=== PATIENT | female | born 1970 | race Caucasian/White ===

== ENCOUNTER → 2017-07-01 07:14 | Outpatient (CLI) | payer BC, SELFPAY ==
[2017-07-01 10:16] LABS: Absolute Lymphocyte Count 0.33 X10^3/ul (0.83-4.51); Absolute Neutrophil Count 2.4 X10^3/uL (2.0-7.7); Basophil# 0.02 X10^3/uL; Basophil% 0.6 % (0-1); Differential Indicated SCAN CRITERIA MET; Eosinophil# 0.09 X10^3/uL; Eosinophils% 2.6 % (0-5); Hematocrit 37.5 % (37-47); Hemoglobin 11.7 g/dl (12.0-15.0); Lymphocyte # 0.33 X10^3/ul (4.0); Lymphocyte % 9.7 % (19-41); Mean Corp Hgb Conc 31.2 g/gl (32-36); Mean Corpuscular Hgb 28.8 pg (27.0-32.0); Mean Corpuscular Volume 92.4 fL (81-99); Monocyte# 0.58 X10^3/uL; Monocyte% 17.1 % (0-10); Neutrophil # 2.37 X10^3/uL (2.7-7.7); Neutrophil % 69.7 % (47-70); POSITIVE COUNT NO; POSITIVE DIFFERENTIAL YES; POSITIVE MORPHOLOGY NO; Platelet Count 206 K/mm3 (150-450); RBC Distribution Width CV 13.8 % (11.6-14.6); RBC Distribution Width SD 46.4 fl (35.1-43.9); Red Blood Count 4.06 M/mm3 (4.2-5.4); White Blood Count 3.4 K/mm3 (4.4-11.0)
== END ==
PROVIDERS: Family Provider Internal Medicine; PCP Internal Medicine; Visit Provider Psychiatry & Neurology Neurology
DX: D72.819 Decreased white blood cell count, unspecified (principal); G35 Multiple sclerosis
CPT/HCPCS: 36415; 85025

== ENCOUNTER → 2017-09-02 15:37 | Outpatient (CLI) | payer BC, SELFPAY ==
--- NOTE | 2017-09-02 15:41 | BI_ITS ---
MAMMOGRAPHY - BILATERAL SCREENING REASON FOR EXAM: Female, 47 years old. Routine annual screening examination. PERTINENT HISTORY: Non-contributory. Prior left stereotactic breast biopsy. TECHNIQUE: Digital bilateral breast taty (3D mammographic acquisition) in the CC and MLO projections. 2-D mediolateral oblique (MLO) and craniocaudad (CC) views of both breasts were obtained. CAD: Full Field Digital Mammography with Computer Added Detection was performed. COMPARISON: Comparison is made with prior examination dated August 27, 2011. FINDINGS: Breast Composition: There are scattered areas of fibroglandular density. There are no dominant masses or suspicious calcifications. Once again, a tissue clip marker is seen in the upper lateral aspect of the left breast. No other significant abnormalities are identified. There has been no significant change since the prior study. BI/SCREENING MAMM (CAD), BILAT IMPRESSION: Stable bilateral screening mammogram. Yearly follow-up mammogram recommended. (A) ASSESSMENT CATEGORY: BIRADS Category 2: Benign. A letter regarding these results will be sent to the patient by the facility within 30 days. Approximately 10% of breast cancers are not detected by mammography. A normal mammogram should not delay biopsy of a clinically suspicious abnormality. [id number] Electronically Signed: Kris Husain MD at 8:33 EDT Tel [phone], Service support ,
== END ==
PROVIDERS: Family Provider Internal Medicine; PCP Internal Medicine; Visit Provider Internal Medicine
DX: Z12.31 Encounter for screening mammogram for malignant neoplasm of breast (principal)
CPT/HCPCS: 77063; 77067

== ENCOUNTER → 2018-06-30 | Outpatient (CLI) | payer BC, SELFPAY ==
[2018-06-30 10:23] LABS: Absolute Lymphocyte Count 0.27 X10^3/ul (0.83-4.51); Basophil# 0.01 X10^3/uL; Basophil% 0.2 % (0-1); Differential Indicated SCAN CRITERIA MET; Eosinophils% 2.5 % (0-5); Hematocrit 38.6 % (37-47); Hemoglobin 12.2 g/dl (12.0-15.0); Lymphocyte # 0.27 X10^3/ul (4.0); Lymphocyte % 6.6 % (19-41); Mean Corp Hgb Conc 31.6 g/gl (32-36); Mean Corpuscular Hgb 28.9 pg (27.0-32.0); Mean Corpuscular Volume 91.5 fL (81-99); Monocyte# 0.67 X10^3/uL; Monocyte% 16.4 % (0-10); Neutrophil # 3.01 X10^3/uL (2.7-7.7); Neutrophil % 73.8 % (47-70); POSITIVE COUNT NO; POSITIVE DIFFERENTIAL YES; POSITIVE MORPHOLOGY NO; Platelet Count 213 K/mm3 (150-450); RBC Distribution Width CV 14.3 % (11.6-14.6); RBC Distribution Width SD 47.4 fl (35.1-43.9); Red Blood Count 4.22 M/mm3 (4.2-5.4); White Blood Count 4.1 K/mm3 (4.4-11.0)
[2018-06-30 13:05] LABS: Pathologist Review Reviewed
== END | disposition home or self-care (01) ==
LOC: MTLAB 07:20
PROVIDERS: Family Provider Internal Medicine; PCP Internal Medicine; Referring Provider Psychiatry & Neurology Neurology; Visit Provider Psychiatry & Neurology Neurology
DX: G35 Multiple sclerosis (principal)
CPT/HCPCS: 36415; 85025

== ENCOUNTER → 2019-07-17 | Outpatient (CLI) | payer OTHER, SELFPAY ==
[2019-07-17 10:03] LABS: Absolute Lymphocyte Count 0.32 X10^3/uL (0.83-4.51); Absolute Neutrophil Count 2.7 X10^3/uL (2.0-7.7); Basophil# 0.03 X10^3/uL; Basophil% 0.8 % (0-1); Eosinophils% 2.7 % (0-5); Hematocrit 40.3 % (37-47); Hemoglobin 12.5 g/dL (12.0-15.0); Lymphocyte # 0.32 X10^3/ul (4.0); Lymphocyte % 8.6 % (19-41); Mean Corpuscular Hgb 28.8 pg (27.0-32.0); Mean Corpuscular Volume 92.9 fL (81-99); Mean Platelet Vol. 10.2 fl (6.2-12.0); Monocyte# 0.54 X10^3/uL; Monocyte% 14.6 % (0-10); NRBC Flagged by Analyzer 0 % (0-5); Neutrophil % 72.8 % (47-70); POSITIVE DIFFERENTIAL YES; Platelet Count 234 K/mm3 (150-450); RBC Distribution Width CV 13.8 % (11.6-14.6); Red Blood Count 4.34 M/mm3 (4.2-5.4); White Blood Count 3.7 K/mm3 (4.4-11.0)
[2019-07-17 10:04] LABS: Differential Indicated SCAN CRITERIA MET
[2019-07-18 10:00] LABS: Pathologist Review Reviewed
== END | disposition home or self-care (01) ==
LOC: MTLAB 07:53
PROVIDERS: PCP Internal Medicine; Referring Provider Psychiatry & Neurology Neurology; Visit Provider Psychiatry & Neurology Neurology
DX: D72.819 Decreased white blood cell count, unspecified (principal); G35 Multiple sclerosis
CPT/HCPCS: 36415; 85025

== ENCOUNTER → 2020-06-24 07:13 | Outpatient (CLI) | payer OTHER, SELFPAY ==
[2020-06-24 10:06] LABS: Absolute Lymphocyte Count 0.29 X10^3/uL (0.83-4.51); Absolute Neutrophil Count 2.5 X10^3/uL (2.0-7.7); Basophil# 0.02 X10^3/uL; Basophil% 0.6 % (0-1); Eosinophil# 0.06 X10^3/uL; Eosinophils% 1.8 % (0-5); Hematocrit 41.8 % (37-47); Hemoglobin 12.9 g/dL (12.0-15.0); Lymphocyte # 0.29 X10^3/ul (4.0); Lymphocyte % 8.5 % (19-41); Mean Corp Hgb Conc 30.9 g/dL (32-36); Mean Corpuscular Hgb 28.4 pg (27.0-32.0); Mean Corpuscular Volume 91.9 fL (81-99); Mean Platelet Vol. 9.8 fl (6.2-12.0); Monocyte# 0.52 X10^3/uL; Monocyte% 15.3 % (0-10); NRBC Flagged by Analyzer 0 % (0-5); Neutrophil # 2.49 X10^3/uL (2.7-7.7); Neutrophil % 73.2 % (47-70); POSITIVE DIFFERENTIAL YES; Platelet Count 254 K/mm3 (150-450); RBC Distribution Width CV 13.3 % (11.6-14.6); RBC Distribution Width SD 45.2 fl (35.1-43.9); Red Blood Count 4.55 M/mm3 (4.2-5.4); White Blood Count 3.4 K/mm3 (4.4-11.0)
[2020-06-24 10:07] LABS: Differential Indicated SCAN CRITERIA MET
[2020-06-24 10:37] LABS: AST(SGOT) 18 U/L (15-37); Alanine Aminotransfer ALT/SGPT 28 U/L (13-56); Albumin, Serum 3.5 g/dL (3.2-5.0); Alkaline Phosphatase 168 U/L (45-117); Globulin 3.9 g/dL (2.2-4.2); Protein, Total 7.4 g/dL (6.4-8.2)
[2020-06-25 12:27] LABS: Pathologist Review Reviewed
== END ==
PROVIDERS: PCP Internal Medicine; Referring Provider Psychiatry & Neurology Neurology; Visit Provider Psychiatry & Neurology Neurology
DX: G35 Multiple sclerosis (principal)
CPT/HCPCS: 36415; 80076; 85025

== ENCOUNTER 2021-05-22 07:15 | Outpatient (CLI) | payer OTHER, SELFPAY ==
[2021-05-22 09:58] LABS: Absolute Neutrophil Count 2.3 X10^3/uL (2.0-7.7); Basophil# 0.03 X10^3/uL; Basophil% 0.9 % (0-1); Eosinophil# 0.05 X10^3/uL; Eosinophils% 1.5 % (0-5); Hematocrit 40.2 % (37-47); Hemoglobin 13.1 g/dL (12.0-15.0); Lymphocyte % 9.3 % (19-41); Mean Corp Hgb Conc 32.6 g/dL (32-36); Mean Corpuscular Hgb 29.5 pg (27.0-32.0); Mean Corpuscular Volume 90.5 fL (81-99); Mean Platelet Vol. 9.9 fl (6.2-12.0); Monocyte# 0.51 X10^3/uL; Monocyte% 15.8 % (0-10); NRBC Flagged by Analyzer 0 % (0-5); Neutrophil # 2.32 X10^3/uL (2.7-7.7); Neutrophil % 71.9 % (47-70); POSITIVE DIFFERENTIAL YES; Platelet Count 242 K/mm3 (150-450); RBC Distribution Width CV 13.8 % (11.6-14.6); RBC Distribution Width SD 45.9 fl (35.1-43.9); Red Blood Count 4.44 M/mm3 (4.2-5.4); White Blood Count 3.2 K/mm3 (4.4-11.0)
[2021-05-22 10:02] LABS: Differential Indicated SCAN CRITERIA MET
[2021-05-22 10:15] LABS: AST(SGOT) 24 U/L (15-37); Alanine Aminotransfer ALT/SGPT 36 U/L (13-56); Albumin, Serum 3.3 g/dL (3.2-5.0); Alkaline Phosphatase 186 U/L (45-117); Bilirubin, Direct 0.08 mg/dL (0.00-0.30); Globulin 4.1 g/dL (2.2-4.2); Protein, Total 7.4 g/dL (6.4-8.2)
[2021-05-26 10:15] LABS: Pathologist Review Reviewed
== END 2021-05-22 23:59 | disposition home or self-care (01) ==
LOC: MTLAB 07:16
PROVIDERS: PCP Internal Medicine; Referring Provider Psychiatry & Neurology Neurology; Visit Provider Psychiatry & Neurology Neurology
DX: G35 Multiple sclerosis (principal)
CPT/HCPCS: 36415; 80076; 85025

== ENCOUNTER → 2022-04-26 | Outpatient (CLI) | payer OTHER, SELFPAY ==
[2022-04-26 10:18] LABS: Absolute Lymphocyte Count 0.35 X10^3/uL (0.83-4.51); Absolute Neutrophil Count 2.5 X10^3/uL (2.0-7.7); Basophil# 0.03 X10^3/uL; Basophil% 0.8 % (0-1); Eosinophil# 0.05 X10^3/uL; Eosinophils% 1.4 % (0-5); Hematocrit 42.3 % (37-47); Hemoglobin 13.4 g/dL (12.0-15.0); Lymphocyte # 0.35 X10^3/ul (0.83-4.51); Lymphocyte % 9.9 % (19-41); Mean Corp Hgb Conc 31.7 g/dL (32-36); Mean Corpuscular Hgb 28.7 pg (27.0-32.0); Mean Corpuscular Volume 90.6 fL (81-99); Mean Platelet Vol. 9.4 fl (6.2-12.0); Monocyte% 16.9 % (0-10); NRBC Flagged by Analyzer 0 % (0-5); Neutrophil # 2.51 X10^3/uL (2.7-7.7); Neutrophil % 70.7 % (47-70); POSITIVE DIFFERENTIAL YES; Platelet Count 198 K/mm3 (150-450); RBC Distribution Width CV 13.7 % (11.6-14.6); RBC Distribution Width SD 45.6 fl (35.1-43.9); Red Blood Count 4.67 M/mm3 (4.2-5.4); White Blood Count 3.6 K/mm3 (4.4-11.0)
[2022-04-26 10:21] LABS: Differential Indicated SCAN CRITERIA MET
[2022-04-26 10:38] LABS: AST(SGOT) 26 U/L (15-37); Alanine Aminotransfer ALT/SGPT 46 U/L (13-56); Albumin, Serum 3.5 g/dL (3.2-5.0); Alkaline Phosphatase 159 U/L (45-117); Bilirubin, Direct 0.11 mg/dL (0.00-0.30); Globulin 4.2 g/dL (2.2-4.2); Protein, Total 7.7 g/dL (6.4-8.2)
[2022-04-26 10:43] LABS: Differential Comment SCANNED
[2022-04-27 12:07] LABS: Pathologist Review Reviewed
== END | disposition home or self-care (01) ==
LOC: MTLAB 07:16
PROVIDERS: PCP Internal Medicine; Referring Provider Psychiatry & Neurology Neurology; Visit Provider Psychiatry & Neurology Neurology
DX: G35 Multiple sclerosis (principal)
CPT/HCPCS: 36415; 80076; 85025

== ENCOUNTER 2022-07-17 08:23 | Emergency (ER) | payer OTHER, SELFPAY ==
[2022-07-17 08:24] VITALS: BP 148/66; PULSE 80; RESP 16; TEMP 35.8; O2SAT 98; BMI 27.4
--- NOTE | 2022-07-17 08:32 | RAD_ITS ---
HISTORY: Trauma. TECHNIQUE: XR Ankle Min 3 Views. COMPARISON: None. FINDINGS: BONES : Oblique fracture distal fibula without displacement. Suspect additional nondisplaced fracture of the distal tibia anteriorly on the lateral view. JOINTS: No dislocation. Joint spaces maintained. Mild joint effusion. SOFT TISSUES: Moderate soft tissue swelling. RAD/Ankle min 3 Views IMPRESSION: Nondisplaced fracture of the distal fibula. Suspect additional nondisplaced fracture of the distal tibia. Soft tissue swelling of the right ankle. Electronically Signed: Luanne Hilliard MD at 9:11 EDT ,
--- NOTE | 2022-07-17 08:33 | ED.VIS.LOWEX ---
HPI History of Present Illness Chief Complaint: Lower Extremity Injury Informant: patient and spouse/S.O. Narrative Narrative: Patient slipped getting into a jeep and hurt her right ankle. This happened about half an hour ago. She denies any other injuries. She states when she fell her knee twisted but it does not hurt at all. She initially went home. But when she and her got home she could not put weight on the ankle when she got out of the jeep. Therefore she came in here. No injury to the head or any other areas. This was a mechanical fall and not syncopal. Weightbearing and palpation makes it worse and rest makes it better PFSH PFSH Medical History no medical history Home Medications hydrocodone-acetaminophen 5-325mg 5mg-325mg 1 tab PO Q6H PRN PRN Pain 3 days #10 TABLETS 07/17/22 [Rx Last Taken Unknown] Allergy/AdvReac Type Severity Reaction Status Date / Time No Known Allergies Allergy Verified 07/17/22 08:24 Family History no significant family his Surgical History no surgical history Social History Smoking Status: Current every day smoker tobacco type: cigarettes ROS ROS ED Constitutional Constitutional ED: Denies chills or fever(s) Eyes Eyes: Denies blurry vision Gastrointestinal Gastrointestinal: Denies nausea or vomiting Musculoskeletal Musculoskeletal: Reports arthralgias; Denies back pain or neck pain Integumentary Denies Abrasions or rash Neurologic Neurologic: Denies headache(s), paresthesias or weakness Hematologic/Lymphatic Hematologic/Lymphatic: Denies easy bleeding or easy bruising EXAM Physical Exam Narrative Exam Narrative: Patient awake alert no acute distress. She is sitting comfortably in the bed. Pleasant carries on normal conversation. HEENT shows no indication of trauma. Cardiorespiratory shows easy unlabored breathing and her saturations were normal at 98% on room air. Extremities show free range of motion of both upper extremities without pain. No deformities or bruising noted. Left lower extremity is normal. The right was examined. There is no tenderness or pain with motion at her knee. However she does have some mild swelling over the lateral malleolus of the right ankle. There is no tenderness medially. There is no tenderness to the fifth metatarsal or calcaneus. Achilles tendon is intact by palpation and Esposito test. Skin shows no abrasion or laceration or open area Neurologically she has normal distal sensation. Const Vital Signs: 07/17/22 08:24 Temperature 96.5 F L Temperature Source Temporal Pulse Rate 80 Respiratory Rate 16 Blood Pressure 148/66 H Blood Pressure Mean 93 Pulse Ox 98 Oxygen Delivery Method Room Air MDM MDM MDM Narrative Medical decision making narrative: My independent interpretation of the patient's three-view ankle x-ray does show a spiral type fracture of the distal fibula really just at and above the mortise area. However the mortise looks intact. This overall looks like a Roque B fracture but without any significant dislocation. Final reading by radiology is pending. Patient will be placed in a boot orthosis because she already has swelling and I cannot really get her in a cast at this point. We will use walker. She was told to be nonweightbearing. She does need follow-up as she may need conversion to a formal cast. It is possible she could need surgery if there is any disruption of the fracture fragments. Even if its not hurting she needs to follow-up for repeat imaging. She did not want anything for pain but I will write something in case the pain increases. She can fill this if needed. Discharge Plan Triage Chief Complaint: Lower Extremity Injury ED Provider: Adan Crocker Dx/Rx/DC Orders Clinical Impression: Closed fracture of right distal fibula, Fall from slipping Instructions: ED Ankle Fracture Prescriptions: New hydrocodone-acetaminophen [hydrocodone-acetaminophen] 5-325 mg tablet 1 tab PO Q6H PRN PRN (Reason: Pain) 3 Days Qty: 10 0RF Primary Care Provider: Zara Lira Referrals: Zara Lira DO [Primary Care Provider] - Dio Hamilton DO [Med Staff - Active Staff] - 3-5 Days Activity Restrictions/Additional Instructions: I sent elevate above the level of your heart as much as possible. No weightbearing on right leg. Disposition Disposition: Home, Self Care
== END 2022-07-17 09:24 | disposition home or self-care (01) ==
PROVIDERS: Emergency Provider Emergency Medicine; PCP Internal Medicine; Visit Provider Emergency Medicine
DX: S82.441A Displaced spiral fracture of shaft of right fibula, initial encounter for closed fracture (principal); F17.210 Nicotine dependence, cigarettes, uncomplicated; W01.0XXA Fall on same level from slipping, tripping and stumbling without subsequent striking against object, initial encounter
CPT/HCPCS: 73610; 99283

== ENCOUNTER → 2023-04-29 | Outpatient (CLI) | payer OTHER, SELFPAY ==
--- OUTSIDE RECORDS SUMMARY | 2023-04-29 07:29 | XMS RPT_ITS | CCD ---
Author Name Unknown Address [address] [place] [address] Organization [facility] Care Team Providers Care Seal Delivery Vehicle Officer Name Role Phone Zara Lira Unavailable Kiara Celis Unavailable Lizbeth Gold Unavailable Earline Martinez Unavailable Unavailable Padmini Gonzales Unavailable Unavailable Gilbert Gonzales Unavailable Unavailable Unavailable Unavailable Zara Lira DO Unavailable Kiara Celis Unavailable [phone] Dr. Lizbeth Gold Unavailable [phone] Earline Martinez RN Unavailable Unavailable Padmini Gonzales Unavailable Unavailable Mariela Crawford CMA Unavailable Unavailable Unavailable Unavailable Zara Lira DO Unavailable Medications Completed/Discontinued Medications Medication Drug Class(es) Dates Sig (Normalized) Sig (Original) acetaminophen 500 mg / HYDROcodone bitartrate 5 mg oral tablet (5 sources) Opioid Agonist Start: 12-02-2010 End: 02-18-2011 take 1 tablet by mouth every six hours as needed VICODIN, 5-500MG (Oral Tablet) 1 Tablet q 6 hr prn for 0 days Quantity: 20 {Tablet} Refills: 0 Ordered: 18-Feb-2011 Earline Martinez RN Start : 02-Dec-2010 End : 18-Feb-2011 Inactive Comments: Mail order. twenty Problems Active Problems Problem Classification Problem Date Documented Da te Episodic/Chronic Abdominal pain (10 sources) Flank pain; Translations: [Flank pain] Resolved: 07-20-2017 08-16-2017 Episodic Past or Other Problems Problem Classification Problem Date Documented Date Episodic/Chronic Unclassified (6 sources) Patient encounter status; Translations: [Encounter for screening mammogram for breast cancer (Renamed from Encounter for screening mammogram for malignant neoplasm of breast)] 08-16-2017 Unclassified (1 source) Screening status; Translations: [SCREENING FOR HYPERLIPIDEMIA] 08-16-2017 Unclassified (4 sources) Sinusitis,acute (461.9) Unclassified (4 sources) Rash (782.1) Unclassified (4 sources) Contact dermatitis and other eczema due to plants (except food) (692.6) Unclassified (12 sources) Well Woman Exam (V72.31) (Pap,Mammo,Routine Female) Unclassified (4 sources) HEMATOMA, NOS Unclassified (10 sources) Unspecified Diagnosis Resolved: 02-22-2012 02-22-2012 Unclassified (4 sources) Well woman exam with routine gynecological exam Unclassified (4 sources) Screening for HPV (human papillomavirus) (Renamed from Encounter for screening for human papillomavirus (HPV)) Unclassified (8 sources) Other Inflammatory Diseases of Cervix, Vagina or Vulva (616.8) Unclassified (8 sources) Abnormal Pap Smear (795.00) Unclassified (4 sources) Plantar wart of right foot (078.12) Unclassified (4 sources) BMI 25.0-25.9,adult Unclassified (4 sources) Abnormal mammogram (793.80) Unclassified (4 sources) Flu-like symptoms Unclassified (4 sources) Nausea and/or vomiting Unclassified (4 sources) Shingles Viral infection (1 source) Plantar wart of right foot; Translations: [Plantar wart of right foot] Resolved: 08-30-2012 08-16-2017 Results Test Name Value Interpretation Reference Range Facil ity Vital Signs Date Time Vital Sign Value Performing Clinician Facility 07-29-2021 11:14-0400 Body height 167.64 cm [facility]; [facility] Work Phone: 07-29-2021 11:14-0400 Body mass index (BMI) [Ratio] 31.84 kg/m2 [facility]; [facility] Work Phone: 07-29-2021 11:14-0400 Body surface area Derived from formula 1.99 m2 Mariela [facility] METER ATTENDANT [facility]; [facility] Work Phone: 07-29-2021 11:14-0400 Body temperature 97.3 [degF] [facility]; [facility] Work Phone: Encounters Encounter Date Encounter Type Care Provider Facility Start: 07-29-2021 End: 07-29-2021 Office outpatient visit 25 minutes Zara Lira DO Work Phone: [facility] Start: 07-29-2021 Review Zara fuentes DO Work Phone: [facility] Start: 08-26-2017 End: 08-26-2017 Office outpatient visit 5 minutes Z[facility] Carbajal [facility] Start: 08-25-2017 End: 08-25-2017 Office outpatient visit 5 minutes Zara Lira [facility] Start: 08-22-2017 End: 08-22-2017 Office outpatient visit 5 minutes [facility] Carb[facility] Start: 08-19-2017 End: 08-19-2017 Office outpatient visit 5 minutes Zara Lira [facility] Start: 08-18-2017 End: 08-18-2017 Office outpatient visit 5 minutes Zara Lira [facility] Start: 08-17-2017 End: 08-18-2017 Office outpatient visit 5 minutes Zara Carbajal [facility] Start: 08-16-2017 End: 08-16-2017 Patient encounter procedure Earline Martinez RN [facility]; [facility] Work Phone: Start: 08-16-2017 End: 08-16-2017 Periodic preventive med est patient 40-64yrs Zara Carbajal [facility] Start: 07-20-2017 End: 07-20-2017 Office outpatient visit 25 minutes Zara Lira [facility] Start: 04-06-2016 End: 04-06-2016 Office outpatient visit 15 minutes Zara Carbajal [facility] Start: 12-05-2013 End: 12-05-2013 Office outpatient visit 25 minutes Zara Carbajal [facility] Start: 04-05-2013 End: 04-05-2013 Patient encounter procedure Zara Carbajal [facility] Start: 09-20-2012 End: 09-20-2012 Patient encounter procedure Zara Lira [facility] Start: 08-30-2012 End: 08-30-2012 Patient encounter procedure Zara Lira [facility] Start: 02-22-2012 End: 02-22-2012 Patient encounter procedure Zara Lira [facility] Start: 02-18-2012 End: 02-18-2012 Patient encounter procedure Zara Lira [facility] Start: 08-13-2011 End: 08-13-2011 Office outpatient visit 15 minutes Zarajamey Lira [facility] Start: 07-29-2011 End: 07-29-2011 Patient encounter procedure Zara Lira [facility] Start: 02-18-2011 End: 02-18-2011 Patient encounter procedure Zara Lira [facility] Start: 12-02-2010 End: 12-02-2010 Patient encounter procedure Zara Lira [facility] Start: 05-12-2009 End: 05-12-2009 Office outpatient visit 15 minutes Zara Pankaj [facility] Start: 12-28-2007 End: 12-28-2007 Patient encounter procedure Zara Lira [facility] Start: 12-14-2007 End: 12-14-2007 Patient encounter procedure Zara Lira [facility] Start: 09-11-2007 End: 09-11-2007 Patient encounter procedure Zara Lira [facility] Start: 08-07-2007 End: 08-07-2007 Office outpatient visit 25 minutes Zara Pankaj [facility] Start: 01-30-2007 End: 01-30-2007 Office outpatient visit 25 minutes Zara Pankaj [facility] Start: 11-28-2006 End: 11-28-2006 Patient encounter procedure Zara Fabianon [facility] Start: 11-02-2006 End: 11-02-2006 Patient encounter procedure Zara Lira [facility] Start: 10-26-2006 End: 10-26-2006 Patient encounter procedure Zarachristopher Fabianon [facility] Start: 10-19-2006 End: 10-19-2006 Patient encounter procedure Zara Lira [facility] Start: 08-12-2006 End: 08-12-2006 Patient encounter procedure Zara Fabianon [facility] Start: 06-27-2006 End: 06-27-2006 Office outpatient visit 10 minutes Zara Lira [facility] Start: 05-17-2006 End: 05-17-2006 Office outpatient new 45 minutes Zara Lira [facility] Patient encounter procedure Mariela Crawford METER ATTENDANT [facility]; [facility] Work Phone: Procedures Date Procedure Procedure Detail Performing Clinician Start: 07-17-2022 End: 07-17-2022 Emergency Department Summary Procedure Note: See Note; NOTES: [facility] Medical Records Department [address] [place] [address] Emergency Department Summary 07/17/22 MR#: [id number] Acct: [id number] Name: SHERRILL HANSEN Rep #: [id number] : 1970 51 From: Adan Crocker MD PCP: Dr. Zara Lira, DO Status:REG ER Location: ED HPI History of Present Illness Chief Complaint: Lower Extremity Injury Informant: patient and spouse/S.O. Narrative Narrative: Patient slipped getting into a jeep and hurt her right ankle. This happened about half an hour ago. She denies any other injuries. She states when she fell her knee twisted but it does not hurt at all. She initially went home. But when she and her got home she could not put weight on the ankle when she got out of the jeep. Therefore she came in here. No injury to the head or any other areas. This was a mechanical fall and not syncopal. Weightbearing and palpation makes it worse and rest makes it better PFSH PFSH Medical History no medical history Home Medications hydrocodone-acetaminophen 5-325mg 5mg-325mg 1 tab PO Q6H PRN PRN Pain 3 days #10 TABLETS 07/17/22 [Rx Last Taken Unknown] Allergy/AdvReac Type Severity Reaction Status Date / Time No Known Allergies Allergy Verified 07/17/22 08:24 Family History no significant family his Surgical History no surgical history Social History Smoking Status: Current every day smoker tobacco type: cigarettes ROS ROS ED Constitutional Constitutional ED: Denies chills or fever(s) Eyes Eyes: Denies blurry vision Gastrointestinal Gastrointestinal: Denies nausea or vomiting Musculoskeletal Musculoskeletal: Reports arthralgias; Denies back pain or neck pain Integumentary Denies Abrasions or rash Neurologic Neurologic: Denies headache(s), paresthesias or weakness Hematologic/Lymphatic Hematologic/Lymphatic: Denies easy bleeding or easy bruising EXAM Physical Exam Narrative Exam Narrative: Patient awake alert no acute distress. She is sitting comfortably in the bed. Pleasant carries on normal conversation. HEENT shows no indication of trauma. Cardiorespiratory shows easy unlabored breathing and her saturations were normal at 98% on room air. Extremities show free range of motion of both upper extremities without pain. No deformities or bruising noted. Left lower extremity is normal. The right was examined. There is no tenderness or pain with motion at her knee. However she does have some mild swelling over the lateral malleolus of the right ankle. There is no tenderness medially. There is no tenderness to the fifth metatarsal or calcaneus. Achilles tendon is intact by palpation and Esposito test. Skin shows no abrasion or laceration or open area Neurologically she has normal distal sensation. Const Vital Signs: 07/17/22 08:24 Temperature 96.5 F L Temperature Source Temporal Pulse Rate 80 Respiratory Rate 16 Blood Pressure 148/66 H Blood Pressure Mean 93 Pulse Ox 98 Oxygen Delivery Method Room Air MDM MDM MDM Narrative Medical decision making narrative: My independent interpretation of the patient's three-view ankle x-ray does show a spiral type fracture of the distal fibula really just at and above the mortise area. However the mortise looks intact. This overall looks like a Roque B fracture but without any significant dislocation. Final reading by radiology is pending. Patient will be placed in a boot orthosis because she already has swelling and I cannot really get her in a cast at this point. We will use walker. She was told to be nonweightbearing. She does need follow-up as she may need conversion to a formal cast. It is possible she could need surgery if there is any disruption of the fracture fragments. Even if its not hurting she needs to follow- up for repeat imaging. She did not want anything for pain but I will write something in case the pain increases. She can fill this if needed. Discharge Plan Triage Chief Complaint: Lower Extremity Injury ED Provider: Adan Crocker Dx/Rx/DC Orders Clinical Impression: Closed fracture of right distal fibula, Fall from slipping Instructions: ED Ankle Fracture Prescriptions: New hydrocodone-acetaminophen [hydrocodone-acetaminophen] 5-325 mg tablet 1 tab PO Q6H PRN PRN (Reason: Pain) 3 Days Qty: 10 0RF Primary Care Provider: Zara Lira Referrals: Zara Lira DO [Primary Care Provider] - Dio Hamilton DO [Med Staff - Active Staff] - 3-5 Days Activity Restrictions/Additional Instructions: I sent elevate above the level of your heart as much as possible. No weightbearing on right leg. Disposition Disposition: Home, Self Care What to do if you have Problems For any increased pain, shortness of breath, bleeding, nausea or vomiting, chest pain, or any unexpected problems, contact your Primary Care Provider. Call [facility] ([phone]) or report to the closest Emergency Room. Call 911 if necessary. 07/17/22901 <Electronically signed by Adan Crocker MD> Cosigner Signature (if applicable): CC: Dr. Zara Lira DO Signed Zara Lira DO Work Phone: Start: 07-17-2022 End: 07-17-2022 Ankle min 3 Views Procedure Note: See Note; NOTES: [facility] Imaging Services [address] [place] [address] Ankle min 3 Views MR#: [id number] Acct: [id number] Name: SHERRILL HANSEN Rep #: [id number] : 1970 F 51 From: Luanne fuentes MD PCP: Dr. Zara Lira DO Status: REG ER Study: Ankle min 3 Views Date of Exam: 07/17/22 Exam# [id number] Ordering Dr: Adan Crocker MD HISTORY: Trauma. TECHNIQUE: XR Ankle Min 3 Views. COMPARISON: None. FINDINGS: BONES : Oblique fracture distal fibula without displacement. Suspect additional nondisplaced fracture of the distal tibia anteriorly on the lateral view. JOINTS: No dislocation. Joint spaces maintained. Mild joint effusion. SOFT TISSUES: Moderate soft tissue swelling. RAD/Ankle min 3 Views IMPRESSION: Nondisplaced fracture of the distal fibula. Suspect additional nondisplaced fracture of the distal tibia. Soft tissue swelling of the right ankle. Electronically Signed: Luanne Hilliard MD at 9:11 EDT , CC: Dr. Zara Lira DO; Dr. Adan Crocker MD Environmental Studies Professor: Signed Zara Lira DO Work Phone: Start: 09-02-2017 End: 09-06-2017 SCREENING MAMM (CAD), BILAT Comments: See Note; NOTES: [facility] Imaging Services [address] [place] [address] SCREENING MAMM (CAD), BILAT MR#: [id number] Acct: [id number] Name: SHERRILL HANSEN Rep #: [id number] : 1970 F 47 From: Kris Husain MD PCP: Zara Lira DO Status: REG CLI Study: SCREENING MAMM (CAD), BILAT Date of Exam: 09/02/17 Exam# [id number] Ordering Dr: Zara Lira DO MAMMOGRAPHY - BILATERAL SCREENING REASON FOR EXAM: Female, 47 years old. Routine annual screening examination. PERTINENT HISTORY: Non-contributory. Prior left stereotactic breast biopsy. TECHNIQUE: Digital bilateral breast taty (3D mammographic acquisition) in the CC and MLO projections. 2-D mediolateral oblique (MLO) and craniocaudad (CC) views of both breasts were obtained. CAD: Full Field Digital Mammography with Computer Added Detection was performed. COMPARISON: Comparison is made with prior examination dated August 27, 2011. FINDINGS: Breast Composition: There are scattered areas of fibroglandular density. There are no dominant masses or suspicious calcifications. Once again, a tissue clip marker is seen in the upper lateral aspect of the left breast. No other significant abnormalities are identified. There has been no significant change since the prior study. BI/SCREENING MAMM (CAD), BILAT IMPRESSION: Stable bilateral screening mammogram. Yearly follow-up mammogram recommended. (A) ASSESSMENT CATEGORY: BIRADS Category 2: Benign. A letter regarding these results will be sent to the patient by the facility within 30 days. Approximately 10% of breast cancers are not detected by mammography. A normal mammogram should not delay biopsy of a clinically suspicious abnormality. [id number] Electronically Signed: Kris Husain MD at 8:33 EDT Tel [phone], Service support , CC: Zara Lira DO Environmental Studies Professor: Signed Zara Lira Work Phone: Breast Biopsy Earline vazquez Plan of Treatment Date Care Activity Detail Author Start: 07-29-2021 Procedure Education Eprescribed prescriptions (G8553) [facility]; [facility] Work Phone: Start: 07-29-2021 Provider Instructions for Treatment Reviewed Air Conditioning Service Technician Letter [facility]; [facility] Work Phone: Start: 07-29-2021 Lipid panel LIPID PANEL (50930) [facility]; [facility] Work Phone: Start: 07-29-2021 25 hydroxy includes fractions if performed CALCIFEDIOL (88838) [facility]; [facility] Work Phone: Start: 07-29-2021 Blood count complete auto&auto difrntl wbc CBC, PLATELETS & AUT DIFF (21030) [facility]; [facility] Work Phone: Start: 07-29-2021 Cyanocobalamin vitamin b-12 VITAMIN B-12 (CYANOCOBALAMIN) (99788) [facility]; [facility] Work Phone: Start: 08-16-2017 Provider Instructions for Treatment [facility]; [facility] Work Phone: Start: 08-16-2017 Cytp cerv/vag auto thin layer prep mnl screen Thin prep Pap (69881) (no STD testing) [facility]; [facility] Work Phone: Start: 07-20-2017 Procedure Education Eprescribed prescriptions (G8553) [facility]; [facility] Work Phone: Start: 07-20-2017 Assay of iron IRON (91376) [facility]; [facility] Work Phone: Start: 07-20-2017 Iron [Mass/Vol] IRON (47120) [facility]; [facility] Work Phone: Start: 04-06-2016 Procedure Education Eprescribed prescriptions (G8553) [facility]; [facility] Work Phone: Start: 04-06-2016 Provider Instructions for Treatment Follow up if no improvement or if symptoms worsen [facility]; [facility] Work Phone: Start: 12-05-2013 Patient Education Water in diet, brief version [facility]; [facility] Work Phone: Start: 12-05-2013 Provider Instructions for Treatment follow up for recheck urine 1 week after complete antibiotic [facility]; [facility] Work Phone: Start: 09-20-2012 Provider Instructions for Treatment [facility]; [facility] Work Phone: Start: 08-30-2012 Provider Instructions for Treatment [facility]; [facility] Work Phone: Start: 02-22-2012 Provider Instructions for Treatment Cryotherapy [facility]; [facility] Work Phone: Start: 08-13-2011 Provider Instructions for Treatment Follow up in 6 months needs repeat Pap and HPV in 6 months hand wrapper operator order so that insurance will cover [facility]; [facility] Work Phone: Start: 07-29-2011 Patient Education [facility]; [facility] Work Phone: Start: 07-29-2011 Provider Instructions for Treatment [facility]; [facility] Work Phone: Start: 09-11-2007 Provider Instructions for Treatment [facility]; [facility] Work Phone: Start: 01-30-2007 Provider Instructions for Treatment [facility]; [facility] Work Phone: Start: 11-02-2006 Provider Instructions for Treatment [facility]; [facility] Work Phone: Start: 10-26-2006 Provider Instructions for Treatment [facility]; [facility] Work Phone: Start: 10-19-2006 Provider Instructions for Treatment [facility]; [facility] Work Phone: Start: 10-19-2006 Cytp cerv/vag auto thin layer prep mnl screen Thin prep Pap (49573) [facility]; [facility] Work Phone: Start: 08-12-2006 Blood count manual cell count each CBC with manual diff (51379) [facility]; [facility] Work Phone: Start: 06-27-2006 Provider Instructions for Treatment [facility]; [facility] Work Phone: Start: 05-17-2006 Lipid panel LIPID PANEL (75353) [facility]; [facility] Work Phone: Immunizations Immunization Date Immunization Notes Care Provider Yue hernández 03-21-2020 COVID-Moderna (100 MCG/0.5 ML) Zara Fabianon DO Work Phone: [facility]; [facility] Work Phone: Payers Date Payer Category Payer Policy ID Unknown Social History Date Type Detail Facility Caffeine Use Caffeine Use [facility]; [facility] Work Phone: Instructions Note Date & Type Note Facility [facility]; [facility] Work Phone: Instructions Note Date & Type Note Facility [facility]; [facility] Work Phone: Instructions Note Date & Type Note Facility [facility]; [facility] Work Phone: Instructions Note Date & Type Note Facility [facility]; [facility] Work Phone: Family History Unknown Family Member Name Dates Details Brother 1 Comments:depression, ulcer, Status:Active Father Comments:depression Status:Active Mother Comments:depression, Status:Active Negative Family History of: Comments:HTN both sides Status:Active Paternal Grandmother Comments:CA, DM, Status:Active Unknown Family Member Name Dates Details Brother 1 Comments:depression, ulcer, Status:Active Father Comments:depression Status:Active Mother Comments:depression, Status:Active Negative Family History of: Comments:HTN both sides Status:Active Paternal Grandmother Comments:CA, DM, Status:Active Unknown Family Member Name Dates Details Brother 1 Comments:depression, ulcer, Status:Active Father Comments:depression Status:Active Mother Comments:depression, Status:Active Negative Family History of: Comments:HTN both sides Status:Active Paternal Grandmother Comments:CA, DM, Status:Active Unknown Family Member Name Dates Details Brother 1 Comments:depression, ulcer, Status:Active Father Comments:depression Status:Active Mother Comments:depression, Status:Active Negative Family History of: Comments:HTN both sides Status:Active Paternal Grandmother Comments:CA, DM, Status:Active Instructions Name Dates Details How to access health informa tion online Indication:Encounter for screening mammogram for breast cancer (Renamed from Encounter for screening mammogram for malignant neoplasm of breast) Start:16-Aug-2017 Instruction Type:Patient Education How to access health informa tion online - Detail Indication:Encounter for screening mammogram for breast cancer (Renamed from Encounter for screening mammogram for malignant neoplasm of breast) Start:16-Aug-2017 Instruction Type:Patient Education Patient Instructions Indication:Encounter for screening mammogram for breast cancer (Renamed from Encounter for screening mammogram for malignant neoplasm of breast) Start:16-Aug-2017 Instruction Type:Provider Instructions for Treatment How to access health informa tion online Indication:Smoker Start:20-Jul-2017 Instruction Type:Patient Education How to access health informa tion online - Detail Indication:Smoker Start:20-Jul-2017 Instruction Type:Patient Education Patient Instructions Indication:Smoker Start:20-Jul-2017 Instruction Type:Provider Instructions for Treatment How to access health informa tion online Indication:Flu-like symptoms Start:06-Apr-2016 Instruction Type:Patient Education How to access health informa tion online - Detail Indication:Flu-like symptoms Start:06-Apr-2016 Instruction Type:Patient Education Patient Instructions Indication:Flu-like symptoms Start:06-Apr-2016 Instruction Type:Provider Instructions for Treatment Patient Instructions Indication:Nausea and/or vomiting Start:05-Dec-2013 Instruction Type:Provider Instructions for Treatment Patient Instructions Indication:Shingles Start:05-Apr-2013 Instruction Type:Provider Instructions for Treatment Additional Source Comments FOR RECORDS PERTAINING TO PATIENTS WHO ARE OR HAVE BEEN ENROLLED IN A CHEMICAL DEPENDENCY/SUBSTANCEABUSE PROGRAM, SOME INFORMATION MAY BE OMITTED. This clinical summary was aggregated from multiple sources. Caution should be exercised in using it in the provision of clinical care. This summary normalizes information from multiple sources, and as a consequence, information in this document may materially change the coding, format and clinical context of patient data. In addition, data may be omitted in some cases. CLINICAL DECISIONS SHOULD BE BASED ON THE PRIMARY CLINICAL RECORDS. [employer] [facility] provides no warranty or guarantee of the accuracy or completeness of information in this document.
[2023-04-29 10:06] LABS: Absolute Lymphocyte Count 0.35 X10^3/uL (0.83-4.51); Absolute Neutrophil Count 2.4 X10^3/uL (2.0-7.7); Basophil# 0.04 X10^3/uL; Basophil% 1.2 % (0-1); Eosinophil# 0.06 X10^3/uL; Eosinophils% 1.8 % (0-5); Hematocrit 40.5 % (37-47); Hemoglobin 12.4 g/dL (12.0-15.0); Lymphocyte # 0.35 X10^3/ul (0.83-4.51); Lymphocyte % 10.4 % (19-41); Mean Corp Hgb Conc 30.6 g/dL (32-36); Mean Corpuscular Hgb 28.4 pg (27.0-32.0); Mean Corpuscular Volume 92.9 fL (81-99); Mean Platelet Vol. 9.5 fl (6.2-12.0); Monocyte# 0.53 X10^3/uL; Monocyte% 15.8 % (0-10); NRBC Flagged by Analyzer 0 % (0-5); Neutrophil # 2.36 X10^3/uL (2.7-7.7); Neutrophil % 70.2 % (47-70); POSITIVE DIFFERENTIAL YES; Platelet Count 220 K/mm3 (150-450); RBC Distribution Width CV 13.7 % (11.6-14.6); RBC Distribution Width SD 46.9 fl (35.1-43.9); Red Blood Count 4.36 M/mm3 (4.2-5.4); White Blood Count 3.4 K/mm3 (4.4-11.0)
[2023-04-29 10:32] LABS: AST(SGOT) 21 U/L (15-37); Alanine Aminotransfer ALT/SGPT 34 U/L (13-56); Albumin, Serum 3.6 g/dL (3.2-5.0); Alkaline Phosphatase 155 U/L (45-117); Bilirubin, Direct 0.12 mg/dL (0.00-0.30); Globulin 3.7 g/dL (2.2-4.2); Protein, Total 7.3 g/dL (6.4-8.2)
== END | disposition home or self-care (01) ==
LOC: MTLAB 07:09
PROVIDERS: PCP Internal Medicine; Referring Provider Psychiatry & Neurology Neurology; Visit Provider Psychiatry & Neurology Neurology
DX: G35 Multiple sclerosis (principal)
CPT/HCPCS: 36415; 80076; 85025

== ENCOUNTER → 2023-06-06 | Outpatient (CLI) | payer OTHER, SELFPAY ==
[2023-06-06 11:18] LABS: AST(SGOT) 18 U/L (15-37); Alanine Aminotransfer ALT/SGPT 21 U/L (13-56); Albumin, Serum 3.7 g/dL (3.2-5.0); Alkaline Phosphatase 138 U/L (45-117); Anion Gap 5 (5-15); BUN 12 mg/dL (7-18); Calcium,Total 9.5 mg/dL (8.5-10.1); Chloride 104 mmol/L (98-107); Cholesterol 221 mg/dL (200); EST Glomerular Filtration Rate 79 mL/min (>60); Est Glom Filt Rate - Afr Amer 96 mL/min (>60); Globulin 3.8 g/dL (2.2-4.2); Glucose 100 mg/dL (74-106); High Density Lipoprotein 65 mg/dL; Potassium 3.9 mmol/L (3.5-5.1); Protein, Total 7.5 g/dL (6.4-8.2); Sodium Level 140 mmol/L (136-145); Triglycerides 71 mg/dL; Very Low Density Lipoprotein 14 mg/dL (5-40)
[2023-06-06 11:25] LABS: Vitamin B12 378 pg/mL (211-911)
== END | disposition home or self-care (01) ==
LOC: MTLAB 07:12
PROVIDERS: PCP Internal Medicine; Referring Provider Internal Medicine; Visit Provider Internal Medicine
DX: E55.9 Vitamin D deficiency, unspecified (principal); Z13.220 Encounter for screening for lipoid disorders; Z12.11 Encounter for screening for malignant neoplasm of colon; E53.8 Deficiency of other specified B group vitamins
CPT/HCPCS: 36415; 80053; 80061; 82306; 82607

== ENCOUNTER → 2023-10-04 | Outpatient (CLI) | payer OTHER, SELFPAY ==
--- NOTE | 2023-10-04 11:48 | BI_ITS ---
MAMMOGRAPHY - BILATERAL SCREENING REASON FOR EXAM: Female, 53 years old. Routine annual screening examination. PERTINENT HISTORY: Non-contributory. Remote Stereotactic left breast biopsy. TECHNIQUE: Digital bilateral breast rohini (3D mammographic acquisition) in the CC and MLO projections. 2-D mediolateral oblique (MLO) and craniocaudad (CC) views of both breasts were obtained. CAD: Full Field Digital Mammography with Computer Added Detection was performed. COMPARISON: Comparison is made with prior study September 02, 2017 and August 27, 2011. FINDINGS: Breast Composition: The breasts are almost entirely fatty. There are no dominant masses or suspicious calcifications. A tissue clip marker is once again seen in the upper lateral aspect of the left breast No other significant abnormalities are identified. There has been no significant change since the prior study. BI/SCRN MAMM (CAD)W/ROHINI BILAT IMPRESSION: Stable bilateral screening mammogram. Yearly follow-up mammogram recommended. (A) ASSESSMENT CATEGORY: BIRADS Category 1: Negative. A letter regarding these results will be sent to the patient by the facility within 30 days. Approximately 10% of breast cancers are not detected by mammography. A normal mammogram should not delay biopsy of a clinically suspicious abnormality. [id number] Electronically Signed: Kris Husain MD at 7:25 EDT ,
== END | disposition home or self-care (01) ==
LOC: OPBI 11:48
PROVIDERS: PCP Internal Medicine; Referring Provider Internal Medicine; Visit Provider Internal Medicine
DX: Z12.31 Encounter for screening mammogram for malignant neoplasm of breast (principal)
CPT/HCPCS: 77063; 77067

== ENCOUNTER → 2024-06-15 | Outpatient (CLI) | payer OTHER, SELFPAY ==
[2024-06-15 10:47] LABS: Absolute Lymphocyte Count 0.35 X10^3/uL (0.83-4.51); Absolute Neutrophil Count 2.2 X10^3/uL (2.0-7.7); Basophil# 0.02 X10^3/uL; Basophil% 0.6 % (0-1); Eosinophil# 0.03 X10^3/uL; Hematocrit 39.5 % (37-47); Hemoglobin 12.4 g/dL (12.0-15.0); Lymphocyte # 0.35 X10^3/ul (0.83-4.51); Lymphocyte % 11.1 % (19-41); Mean Corp Hgb Conc 31.4 g/dL (32-36); Mean Corpuscular Hgb 28.8 pg (27.0-32.0); Mean Corpuscular Volume 91.9 fL (81-99); Mean Platelet Vol. 9.8 fl (6.2-12.0); Monocyte# 0.52 X10^3/uL; Monocyte% 16.5 % (0-10); NRBC Flagged by Analyzer 0 % (0-5); Neutrophil # 2.22 X10^3/uL (2.7-7.7); Neutrophil % 70.5 % (47-70); POSITIVE DIFFERENTIAL YES; Platelet Count 231 K/mm3 (150-450); RBC Distribution Width CV 13.8 % (11.6-14.6); RBC Distribution Width SD 46.9 fl (35.1-43.9); White Blood Count 3.2 K/mm3 (4.4-11.0)
[2024-06-15 11:32] LABS: AST(SGOT) 30 U/L (<=31); Alanine Aminotransfer ALT/SGPT 37 U/L (<=34); Alkaline Phosphatase 161 U/L (35-104); Bilirubin, Direct 0.13 mg/dL (0.00-0.30); Total Bilirubin 0.26 mg/dL (0.00-1.30)
== END | disposition home or self-care (01) ==
LOC: MTLAB 07:17
PROVIDERS: PCP Internal Medicine; Referring Provider Psychiatry & Neurology Neurology; Visit Provider Psychiatry & Neurology Neurology
DX: G35 Multiple sclerosis (principal)
CPT/HCPCS: 36415; 80076; 85025